=== PATIENT | female | born 1985 | race Caucasian/White ===

== ENCOUNTER 2019-07-05 03:53 | Inpatient (IN) | payer OTHER ==
[~2019-07-05] VITALS: Ht 152.4 cm; Wt 88.9 kg
[2019-07-05] MEDS ORDERED: PREN-380 PO (04:23)
[2019-07-05] MEDS ORDERED: CARBOPROST 250 MCG/ML AMP IM PRN (04:25)
[2019-07-05] MEDS ORDERED: AMPICILLIN 2,000 MG in NACL 0.9% MINI-BAG PLUS 100 ML IV SCH (04:25)
[2019-07-05] MEDS ORDERED: METHYLERGONOVINE 0.2 MG/ML AMP IM PRN ×3 (04:25→19:00)
[2019-07-05] MEDS ORDERED: AMPICILLIN 2,000 MG VIAL ONE (04:36)
[2019-07-05] MEDS ORDERED: CLINDAMYCIN 900 MG/6 ML VIAL IV ONE ×3 (04:42→18:52)
[2019-07-05] MEDS ORDERED: PROMETHAZINE 25 MG/ML VIAL IM PRN (04:45)
[2019-07-05] MEDS ORDERED: MORPHINE SULFATE 5 MG/ML VIAL IVP PRN (04:45)
[2019-07-05] MEDS: CLINDAMYCIN 900 MG in DEXTROSE 5% 100 ML IV SCH ×2 (05:04→14:27)
[2019-07-05] MEDS: LACTATED RINGERS 1,000 ML IV SCH ×3 (05:04→11:44)
[2019-07-05] MEDS ORDERED: MORPHINE SULFATE 10 MG/ML VIAL ONE (05:10)
[2019-07-05] MEDS ORDERED: PROMETHAZINE 25 MG/ML VIAL ONE (05:10)
[2019-07-05 05:14] VITALS: BP 129/80
[2019-07-05 06:13] LABS: BASOPHILS % (AUTO) 0.1 % (0.0-2.0); EOSINOPHILS % (AUTO) 0.3 % (0.0-4.0); HEMATOCRIT 35.7 % (36-48); HEMOGLOBIN 12.1 g/dL (12.0-16.0); LYMPHOCYTES # (AUTO) 1.1 K/uL (2.5-16.5); LYMPHOCYTES % (AUTO) 16.6 % (20.5-51.1); MEAN CORPUSCULAR HEMOGLOBIN 29 pg (27-31); MEAN CORPUSCULAR HGB CONC 34 g/dL (33-37); MONOCYTES # (AUTO) 0.3 K/uL (0.8-1.0); MONOCYTES % (AUTO) 4.1 % (1.7-9.3); NEUTROPHILS # (AUTO) 5.3 K/uL (1.8-7.7); NEUTROPHILS % (AUTO) 78.9 % (42.2-75.2); PLATELET COUNT (AUTO) 175 K/uL (140-450); RED CELL DISTRIBUTION WIDTH 14.8 % (11.6-13.7); WHITE BLOOD COUNT (AUTO) 6.7 K/uL (4.8-10.8)
[2019-07-05 06:26] LABS: APPEARANCE,URINE SL CLOUDY (CLEAR); BILIRUBIN,URINE NEGATIVE (NEGATIVE); BLOOD, URINE TRACE-I (NEGATIVE); COLOR,URINE YELLOW (YELLOW); LEUKOCYTE ESTERASE ,URINE NEGATIVE (NEGATIVE); NITRITE, URINE NEGATIVE (NEGATIVE); UGLUCOSE NEGATIVE (NEGATIVE)
[2019-07-05 06:40] LABS: ALBUMIN 2.2 g/dL (3.4-5.0); ANION GAP 13.5 (8-16); CARBON DIOXIDE 24.3 mmol/L (21-32); CREATININE 0.7 mg/dL (0.6-1.3); POTASSIUM 3.8 mmol/L (3.5-5.1); TOTAL BILIRUBIN 0.4 mg/dL (0.0-1.0)
[2019-07-05 06:48] LABS: RBC,URINE 0-5 /HPF (0-5); WBC,URINE 0-5 /HPF (0-5)
[2019-07-05] MEDS ORDERED: MORPHINE SULFATE 10 MG/ML VIAL IVP PRN (07:07)
[2019-07-05] MEDS ORDERED: AMPICILLIN 1,000 MG in NACL 0.9% MINI-BAG PLUS 50 ML IV SCH (08:00)
--- NOTE | 2019-07-05 09:00 | NUR ---
PATIENT HAS BEEN SCREENED AND CATEGORIZED LOW NUTRITION RISK. PATIENT WILL BE SEEN WITHIN 7 DAYS OF ADMISSION. 07/11/[address]
[2019-07-05] MEDS ORDERED: OXYTOCIN 20 UNITS in LACTATED RINGERS 1,000 ML IV SCH (10:30)
[2019-07-05] MEDS ORDERED: ROPIVACAINE 0.2%/NS PREMIX 200 ML EPI ONE (11:35)
[2019-07-05] MEDS ORDERED: KETOROLAC 60 MG/2 ML VIAL IM PRN (11:55)
[2019-07-05] MEDS ORDERED: NALOXONE 0.4 MG/ML VIAL IVP PRN (11:55)
[2019-07-05] MEDS ORDERED: diphenhydrAMINE 50 MG/ML VIAL IVP PRN (11:55)
[2019-07-05] MEDS ORDERED: ONDANSETRON 4 MG/2 ML VIAL IVP PRN (11:55)
[2019-07-05] MEDS ORDERED: OXYTOCIN 20 UNITS/LR PREMIX 1,000 ML IV ONE (12:47)
[2019-07-05] MEDS ORDERED: SODIUM PHOSPHATE 118 ML ENEM RC PRN (14:45)
[2019-07-05] MEDS ORDERED: BENZOCAINE/MENTHOL 20%-0.5% 60 GM CAN TP PRN (14:45)
[2019-07-05] MEDS ORDERED: METHYLERGONOVINE 0.2 MG TAB PO PRN (14:45)
[2019-07-05] MEDS ORDERED: OXYTOCIN 10 UNITS/ML VIAL IM PRN (14:45)
[2019-07-05] MEDS ORDERED: IBUPROFEN 800 MG TAB PO PRN ×2 (14:45→19:05)
[2019-07-05] MEDS ORDERED: TEMAZEPAM 15 MG CAP PO PRN ×2 (14:45→19:00)
[2019-07-05] MEDS ORDERED: oxyCODONE/APAP 5/325 MG 1 TAB TAB PO PRN ×2 (14:45→19:00)
[2019-07-05] MEDS ORDERED: OXYTOCIN 20 UNITS/LR PREMIX 1,000 ML IV SCH (19:00)
[2019-07-05] MEDS ORDERED: MAGNESIUM CITRATE 300 ML BTL PO SCH (19:00)
[2019-07-05] MEDS ORDERED: MORPHINE PRES FREE 10 MG/10 ML AMP IV ONE (19:58)
[2019-07-05] MEDS ORDERED: DOCUSATE SOD/SENNA 50/8.6 MG 1 TAB PO SCH (21:00)
[2019-07-05] MEDS: KETOROLAC 30 MG/ML VIAL IVP PRN (21:35)
[2019-07-06 06:29] LABS: BASOPHILS % (AUTO) 0.2 % (0.0-2.0); HEMATOCRIT 27.7 % (36-48); HEMOGLOBIN 9.5 g/dL (12.0-16.0); LYMPHOCYTES # (AUTO) 1.2 K/uL (2.5-16.5); LYMPHOCYTES % (AUTO) 15.8 % (20.5-51.1); MEAN CORPUSCULAR HEMOGLOBIN 29 pg (27-31); MEAN CORPUSCULAR HGB CONC 34 g/dL (33-37); MEAN CORPUSCULAR VOLUME 85.3 fL (80-94); MONOCYTES # (AUTO) 0.5 K/uL (0.8-1.0); MONOCYTES % (AUTO) 5.8 % (1.7-9.3); NEUTROPHILS # (AUTO) 6.2 K/uL (1.8-7.7); NEUTROPHILS % (AUTO) 78.2 % (42.2-75.2); PLATELET COUNT (AUTO) 156 K/uL (140-450); RED BLOOD CELL COUNT(AUTO) 3.24 MIL/uL (4.20-5.40); RED CELL DISTRIBUTION WIDTH 14.9 % (11.6-13.7); WHITE BLOOD COUNT (AUTO) 7.9 K/uL (4.8-10.8)
[2019-07-06] MEDS ORDERED: SODIUM PHOSPHATE 118 ML ENEM RC SCH (09:00)
[2019-07-06] MEDS ORDERED: POTASSIUM CHLORIDE 20 MEQ in LACTATED RINGERS 1,000 ML IV SCH (10:55)
[2019-07-06] MEDS ORDERED: OXYTOCIN 20 UNITS in LACTATED RINGERS 1,000 ML IM SCH (11:00)
[2019-07-06] MEDS: KETOROLAC 30 MG/ML VIAL IVP PRN (11:51)
[2019-07-06] MEDS: SIMETHICONE 80 MG TAB.CHEW PO PRN (18:03)
[2019-07-06] MEDS: CALCIUM POLYCARBOPHIL 625 MG TAB PO SCH ×2 (18:03→21:13)
[2019-07-06] MEDS: DOCUSATE SOD/SENNA 50/8.6 MG 1 TAB PO SCH (21:15)
[2019-07-06] MEDS: BISACODYL 5 MG TABEC PO SCH (21:16)
[2019-07-06] MEDS: oxyCODONE/APAP 5/325 MG 1 TAB TAB PO PRN (23:36)
[2019-07-07] MEDS: SIMETHICONE 80 MG TAB.CHEW PO PRN ×3 (02:21→12:56)
[2019-07-07] MEDS: CALCIUM POLYCARBOPHIL 625 MG TAB PO SCH ×4 (08:48→21:12)
[2019-07-07] MEDS: HYDROcodone/APAP 5/325 MG 1 TAB TAB PO PRN ×2 (17:45→23:26)
[2019-07-07] MEDS: BISACODYL 5 MG TABEC PO SCH (21:11)
[2019-07-07] MEDS: DOCUSATE SOD/SENNA 50/8.6 MG 1 TAB PO SCH (21:12)
[2019-07-08] MEDS ORDERED: CAMERA MC ONE (02:12)
[2019-07-08] MEDS: CALCIUM POLYCARBOPHIL 625 MG TAB PO SCH (08:39)
[2019-07-08] MEDS: SIMETHICONE 80 MG TAB.CHEW PO PRN (08:39)
[2019-07-08] MEDS: oxyCODONE/APAP 5/325 MG 1 TAB TAB PO PRN (08:40)
[2019-07-08] MEDS ORDERED: IBUP-2213 PO (10:13)
[2019-07-08] MEDS ORDERED: HYDR-5122 PO (10:14)
[2019-07-08] MEDS ORDERED: FERR325E14 PO (10:15)
== END 2019-07-08 11:20 | disposition home or self-care (01) | DRG 540 ==
LOC: MFCC 03:53
PROVIDERS: ADMIT Obstetrics & Gynecology; ATTEND Obstetrics & Gynecology
PROC: 10D00Z1 Extraction of Products of Conception, Low, Open Approach (ICD-10-PCS; 2019-07-05)
PROC: 3E0234Z Introduction of Serum, Toxoid and Vaccine into Muscle, Percutaneous Approach (ICD-10-PCS; principal; 2019-07-07)
DX: O62.1 Secondary uterine inertia (principal); Z23 Encounter for immunization; Z37.0 Single live birth; Z3A.39 39 weeks gestation of pregnancy; Z88.0 Allergy status to penicillin; Z88.8 Allergy status to other drugs, medicaments and biological substances
CPT/HCPCS: 36415; 51702; 80053; 81001; 85025; 86592; 86886; 86900; 86901; 90715; J0290; J1200; J1885; J2270; J2405; J2550; J2590; J2795; J3480; J3490; J7060; J7120